=== PATIENT | female | born 1935 | race Caucasian/White ===

== ENCOUNTER 2016-05-24 14:46 | Emergency (ER) | payer MEDICARE ==
[2016-05-24 15:56] LABS: HEMOGLOBIN 13.8 gm/dl (12.3-15.3); RED BLOOD COUNT 4.58 M/UL (4.00-5.10)
== END 2016-05-24 18:51 | disposition home or self-care (01) ==
LOC: ER1 14:46
PROVIDERS: Emergency Medicine
DX: I47.1 Supraventricular tachycardia (principal); Z95.810 Presence of automatic (implantable) cardiac defibrillator; Z95.5 Presence of coronary angioplasty implant and graft; Z95.1 Presence of aortocoronary bypass graft
CPT/HCPCS: 71010; 80053; 82550; 82553; 83735; 83874; 83880; 84443; 84484; 85025; 93005; 96374; 99291; J0153